=== PATIENT | female | born 1975 | race Caucasian/White ===

== ENCOUNTER 2020-09-27 20:51 | Emergency (ER) | payer OTHER ==
[~2020-09-27] VITALS: Ht 162.6 cm; Wt 79.8 kg
[2020-09-27 20:55] VITALS: BP 127/84
[2020-09-27] MEDS ORDERED: SILVER SULFADIAZINE 50 GM JAR TP STA (20:58)
[2020-09-27] MEDS ORDERED: TDAP [DIPH/PERTUSSIS/TET] 0.5 ML VIAL IM ONE ×2 (21:00→21:03)
[2020-09-27] MEDS ORDERED: SILVER SULFADIAZINE CREAM 25 GM TUBE ONE (21:03)
== END 2020-09-27 21:18 | disposition home or self-care (01) ==
LOC: ER 20:55
DX: T21.25XA Burn of second degree of buttock, initial encounter (principal); T24.212A Burn of second degree of left thigh, initial encounter; T24.211A Burn of second degree of right thigh, initial encounter; X08.8XXA Exposure to other specified smoke, fire and flames, initial encounter; Y93.89 Activity, other specified; Y92.89 Other specified places as the place of occurrence of the external cause; Y99.8 Other external cause status
CPT/HCPCS: 16020; 90471; 90715; 99283; A6403